=== PATIENT | male | born 1985 | race Caucasian/White ===

== ENCOUNTER 2017-10-10 23:20 | Emergency (ER) | payer SELFPAY ==
[~2017-10-10] VITALS: Ht 177.8 cm; Wt 106.8 kg
[2017-10-10 23:27] VITALS: BP 121/75; PULSE 68; RESP 18; TEMP 98.1; O2SAT 98
--- NOTE | 2017-10-11 00:50 | PD ---
HPI Chief Complaint: Injury Time Seen by Provider: 00:48 Travel History International Travel<30 days: No Contact w/Intl Traveler<30days: No Traveled to known affect area: No History of Present Illness HPI 32-year-old male presents for evaluation of left foot pain. He reports that 5 days ago he dropped a tire corbin onto his left foot. Since then he has had pain and bruising the left foot which is aching and worse with ambulation. He reports that initially there was more severe soft tissue swelling the soft tissue swelling is improved but he presents now for evaluation. Last tetanus vaccination unknown. No other complaints at this time. [facility] Past Medical History Immunizations Current: Yes Social History Alcohol Use: No Tobacco Use: No Substance Use: No Allergies-Medications (Allergen,Severity, Reaction): Coded Allergies: No Known Allergies (Verified Allergy, Unknown, 10/10/17) Review of Systems Except as stated in HPI: all other systems reviewed are Neg Physical Exam Narrative GENERAL: Well-developed well-nourished male in no acute distress SKIN: Warm and dry. Ecchymosis and abrasion noted to the dorsum of the left foot. HEAD: Atraumatic. Normocephalic. EYES: Pupils equal and round. No scleral icterus. No injection or drainage. ENT: No nasal bleeding or discharge. Mucous membranes pink and moist. NECK: Trachea midline. No JVD. CARDIOVASCULAR: Regular rate and rhythm. No murmur appreciated. RESPIRATORY: No accessory muscle use. Clear to auscultation. Breath sounds equal bilaterally. MUSCULOSKELETAL: Skin as noted above. Generalized tenderness to palpation of the dorsum of the left foot. Full range of motion of the left ankle and toes. 2+ dorsalis pedis pulse. NEUROLOGICAL: Awake and alert. No obvious cranial nerve deficits. Motor grossly within normal limits. Normal speech. Data Data Last Documented VS Vital Signs Date Time Temp Pulse Resp B/P (MAP) Pulse Ox O2 Delivery O2 Flow Rate FiO2 10/10/17 23:27 98.1 68 18 121/75 (90) 98 Orders Orders Foot, Complete ([id number]) (10/11/17 ) Ice/Cold Pack (10/11/17 00:49) Ed Discharge Order (10/11/17 03:18) MDM Medical Decision Making Medical Screen Exam Complete: Yes Emergency Medical Condition: Yes Medical Record Reviewed: Yes Differential Diagnosis Fracture, contusion, abrasion Narrative Course X-ray imaging of left foot reveals no acute abnormalities. The patient is stable for discharge. Diagnosis Primary Impression: Contusion of left foot Additional Impression: Abrasion of left foot Departure Forms: Tests/Procedures, Work Release Enter return to work date: Oct 12, 2017 Med/Other Pt SpecificInfo: No Change to Meds Disposition: 01 DISCHARGE HOME Condition: Stable [place] Griffin Oct 11, 2017 00:50
--- NOTE | 2017-10-11 02:32 | RADRPT ---
EXAM DATE/TIME: 10/11/2017 01:35 [place] COMPARISON: No previous studies available for comparison. INDICATIONS : Car corbin fell onto top of left foot. MEDICAL HISTORY : None. SURGICAL HISTORY : None. ENCOUNTER: Initial ACUITY: 4 - 6 days PAIN SCORE: 5/10 LOCATION: Left Lateral side of foot. FINDINGS: Three view examination of the left foot demonstrates no soft tissue swelling, dislocation, or fractur e. The tarsal bones appear intact. The interphalangeal and metatarsophalangeal joints are intact. The calcaneus is intact. Bony mineralization is normal. CONCLUSION: No acute osseous injury. Micheal Quan MD on October 11, 2017 at 2:30 Board Certified Radiologist. This report was verified electronically.
== END 2017-10-11 03:47 | disposition home or self-care (01) ==
LOC: NEPD 23:20
DX: S90.32XA Contusion of left foot, initial encounter (principal); S90.812A Abrasion, left foot, initial encounter; W22.8XXA Striking against or struck by other objects, initial encounter
CPT/HCPCS: 73630; 99283